=== PATIENT | male | born 1990 ===

== ENCOUNTER 2018-01-20 15:41 | Emergency (ER) | payer OTHER ==
[2018-01-20 16:07] VITALS: RESP 18; O2SAT 98
[2018-01-20] MEDS ORDERED: Naproxen 550 mg Tab PO STA (16:17)
[2018-01-20] MEDS ORDERED: Naproxen 550 mg Tab PO ONE (16:29)
[2018-01-20 16:40] VITALS: BP 124/83; PULSE 70; TEMP 98.1
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
--- NOTE | 2018-01-20 17:14 | C.PDOC ---
- HPI Time Seen by Provider: 01/20/18 16:03 Chief Complaint (Nursing): Trauma Past Medical History Vital Signs: Last Vital Signs Temp 98.1 F 01/20/18 16:39 Pulse 70 01/20/18 16:39 Resp 18 01/20/18 16:39 BP 124/83 01/20/18 16:39 Pulse Ox 98 01/20/18 16:39 - Social History Hx Alcohol Use: No Hx Substance Use: No - Immunization History Hx Tetanus Toxoid Vaccination: No Hx Influenza Vaccination: No Hx Pneumococcal Vaccination: No ED Course And Treatment O2 Sat by Pulse Oximetry: 98 Disposition - Disposition
--- NOTE | 2018-01-21 08:22 | RAD ---
PROCEDURE: Cervical Spine Radiographs. HISTORY: Pain. COMPARISON: None. FINDINGS: BONES: Alignment maintained. No fracture. Dens Intact. DISC SPACES: Normal. SOFT TISSUES: Normal. No prevertebral soft tissue swelling. OTHER FINDINGS: None. IMPRESSION: No acute fracture.
== END 2018-01-20 17:50 | disposition home or self-care (01) ==
LOC: C.ER 15:41
DX: S16.1XXA Strain of muscle, fascia and tendon at neck level, initial encounter (principal); V89.2XXA Person injured in unspecified motor-vehicle accident, traffic, initial encounter